=== PATIENT | female | born 2000 ===

== ENCOUNTER 2023-06-14 18:06 | Inpatient (IN) | payer OTHER ==
[~2023-06-14] VITALS: Ht 157.5 cm; Wt 87.2 kg
[2023-06-14 18:12] VITALS: BP 122/72
[2023-06-14 18:53] LABS: BASOPHILS ABSOLUTE AUTO 0.05 K/mm3 (0.00-0.23); BASOPHILS PERCENT AUTO 0 % (0-2); EOSINOPHILS ABSOLUTE AUTO 0.19 K/mm3 (0.00-0.68); EOSINOPHILS PERCENT AUTO 1 % (0-6); Hematocrit 38.5 % (33.0-51.0); Hemoglobin 13.2 g/dL (11.5-16.0); IMMATURE GRAN ABSOLUTE AUTO 0.07 K/mm3 (0.00-0.10); IMMATURE GRAN PERCENT AUTO 1 % (0-1); LYMPHOCYTES ABSOLUTE AUTO 2.48 K/mm3 (0.84-5.20); LYMPHOCYTES PERCENT AUTO 17 % (21-46); MONOCYTES ABSOLUTE AUTO 0.79 K/mm3 (0.16-1.47); MONOCYTES PERCENT AUTO 5 % (4-13); Mean Corpuscular HGB 28.8 pg (26.0-34.0); Mean Corpuscular HGB Conc 34.3 g/dL (31.5-36.5); Mean Corpuscular Volume 84 fL (80-100); Mean Platelet Volume 9.5 fL (9.1-12.4); NEUTROPHILS ABSOLUTE AUTO 11.25 K/mm3 (1.96-9.15); NEUTROPHILS PERCENT AUTO 76 % (41-73); Platelet Count 361 K/mm3 (150-400); RDW Coefficient Variation 12.9 % (11.7-14.2); RDW Standard Deviation 39.3 fL (35.1-46.3); Red Blood Cell Count 4.59 M/mm3 (3.80-5.20); White Blood Cell Count 14.83 K/mm3 (4.00-11.30)
[2023-06-14 21:13] VITALS: BP 113/71
[2023-06-15] VITALS (12 sets, daily range): BP systolic 115–129; BP diastolic 67–76
[2023-06-15 08:13] LABS: PCO2 Cord - Arterial 56.2 mmHg (40-50); PO2 Cord - Arterial < 16 mmHg (16-20); pH Cord - Arterial 7.32 (7.28-7.35)
--- NOTE | 2023-06-15 08:13 | NUR ---
06/15/23 0813 Batsheva Elena TIME: 0759. CORD BLOOD SENT WITH [email or web address]. CORD SEGMENT SENT WITH [email or web address]
[2023-06-15 08:15] LABS: PCO2 Cord - Venous 46.4 mmHg (40-50); PO2 Cord - Venous 15.7 mmHg (28-32); pH Umbilical Cord - Venous 7.37 (7.26-7.35)
[2023-06-16 00:11] VITALS: BP 118/77
--- NOTE | 2023-06-16 03:45 | NUR ---
8361 Patient had just gotten up to the bathroom. Used call light to call for nurse. Patient sitting on edge of bed crying due to pain, unable to move. Administered ibuprofen and tylenol. Pain continued to be severe with patient rating it a 10/10. Administered IV dilaudid per order. Patient's IV leaked with administration so did not receive all of medication.
--- NOTE | 2023-06-16 05:12 | NUR ---
[address] Sanches to report patient's pain of 02/11. Patient reports pain around incision and in lower back that is not relieved by medications. Telephone order to administer 1 mg PO dilaudid now with vistaril, then resume 2 mg PO dilaudid every 3 hours with vistaril.
[2023-06-16 05:42] VITALS: BP 121/66
[2023-06-16 06:04] LABS: BASOPHILS ABSOLUTE AUTO 0.04 K/mm3 (0.00-0.23); BASOPHILS PERCENT AUTO 0 % (0-2); EOSINOPHILS ABSOLUTE AUTO 0.19 K/mm3 (0.00-0.68); EOSINOPHILS PERCENT AUTO 2 % (0-6); Hematocrit 34.6 % (33.0-51.0); Hemoglobin 11.7 g/dL (11.5-16.0); IMMATURE GRAN ABSOLUTE AUTO 0.06 K/mm3 (0.00-0.10); IMMATURE GRAN PERCENT AUTO 1 % (0-1); LYMPHOCYTES ABSOLUTE AUTO 1.85 K/mm3 (0.84-5.20); LYMPHOCYTES PERCENT AUTO 15 % (21-46); MONOCYTES ABSOLUTE AUTO 0.89 K/mm3 (0.16-1.47); MONOCYTES PERCENT AUTO 7 % (4-13); Mean Corpuscular HGB 28.7 pg (26.0-34.0); Mean Corpuscular HGB Conc 33.8 g/dL (31.5-36.5); Mean Corpuscular Volume 85 fL (80-100); Mean Platelet Volume 9.2 fL (9.1-12.4); NEUTROPHILS ABSOLUTE AUTO 9.04 K/mm3 (1.96-9.15); NEUTROPHILS PERCENT AUTO 75 % (41-73); Platelet Count 271 K/mm3 (150-400); RDW Coefficient Variation 13.2 % (11.7-14.2); RDW Standard Deviation 40.1 fL (35.1-46.3); Red Blood Cell Count 4.07 M/mm3 (3.80-5.20); White Blood Cell Count 12.07 K/mm3 (4.00-11.30)
--- NOTE | 2023-06-16 06:05 | NUR ---
Patient reports pain has improved significantly and is now 4/10.
[2023-06-16 07:29] VITALS: BP 115/71
[2023-06-16 11:42] VITALS: BP 123/72
[2023-06-16] MEDS ORDERED: HYDMOR2 PO (12:37)
[2023-06-16] MEDS ORDERED: DOCU100 PO (12:38)
[2023-06-16] MEDS ORDERED: IBUP800 PO (12:38)
[2023-06-16 16:40] VITALS: BP 106/57
[2023-06-16 19:45] VITALS: BP 127/73
[2023-06-17 00:29] VITALS: BP 127/82
[2023-06-17 03:40] VITALS: BP 129/74
[2023-06-17 07:35] VITALS: BP 132/77
--- NOTE | 2023-06-17 12:16 | NUR ---
PT REFUSES VITALS AT THIS TIME
[2023-06-17 15:13] VITALS: BP 129/83
== END 2023-06-17 15:49 | disposition home or self-care (01) | DRG 787 ==
LOC: BC 18:06
PROVIDERS: ADMIT Obstetrics & Gynecology
PROC: 10D00Z1 Extraction of Products of Conception, Low, Open Approach (ICD-10-PCS; principal; 2023-06-15 07:30)
DX: O32.1XX0 Maternal care for breech presentation, not applicable or unspecified (principal); O99.354 Diseases of the nervous system complicating childbirth; Z37.0 Single live birth; Z3A.37 37 weeks gestation of pregnancy; O36.5930 Maternal care for other known or suspected poor fetal growth, third trimester, not applicable or unspecified; O76 Abnormality in fetal heart rate and rhythm complicating labor and delivery; O99.344 Other mental disorders complicating childbirth; F41.9 Anxiety disorder, unspecified; F32.A Depression, unspecified; G43.909 Migraine, unspecified, not intractable, without status migrainosus; Z62.813 Personal history of forced labor or sexual exploitation in childhood
CPT/HCPCS: 36415; 82803; 85025; 86850; 86900; 86901; A9270; J0690; J1170; J1885; J2371; J2405; J2590; J2765; J3010; J7120; Q0177

== ENCOUNTER 2023-11-11 13:14 | Observation (INO) | payer OTHER ==
[~2023-11-11] VITALS: Ht 157.5 cm; Wt 72.6 kg
[~2023-11-11 13:14] MED LIST: DOCU100 PO; HYDMOR2 PO; IBUP800 PO
[2023-11-11 13:19] VITALS: BP 117/84
[2023-11-11] MEDS ORDERED: ZOLOFT10013 PO (13:54)
[2023-11-11] MEDS ORDERED: Buspirone HCl15 MG PO (13:54)
[2023-11-11 14:57] LABS: BASOPHILS ABSOLUTE AUTO 0.09 K/mm3 (0.00-0.23); BASOPHILS PERCENT AUTO 1 % (0-2); EOSINOPHILS ABSOLUTE AUTO 0.33 K/mm3 (0.00-0.68); EOSINOPHILS PERCENT AUTO 4 % (0-6); Hematocrit 44.5 % (33.0-51.0); Hemoglobin 14.9 g/dL (11.5-16.0); IMMATURE GRAN ABSOLUTE AUTO 0.01 K/mm3 (0.00-0.10); IMMATURE GRAN PERCENT AUTO 0 % (0-1); LYMPHOCYTES ABSOLUTE AUTO 2.14 K/mm3 (0.84-5.20); LYMPHOCYTES PERCENT AUTO 24 % (21-46); MONOCYTES ABSOLUTE AUTO 0.55 K/mm3 (0.16-1.47); MONOCYTES PERCENT AUTO 6 % (4-13); Mean Corpuscular HGB Conc 33.5 g/dL (31.5-36.5); Mean Corpuscular Volume 84 fL (80-100); NEUTROPHILS ABSOLUTE AUTO 5.64 K/mm3 (1.96-9.15); NEUTROPHILS PERCENT AUTO 64 % (41-73); Platelet Count 436 K/mm3 (150-400); RDW Standard Deviation 42.7 fL (35.1-46.3); Red Blood Cell Count 5.32 M/mm3 (3.80-5.20); White Blood Cell Count 8.76 K/mm3 (4.00-11.30)
[2023-11-11 15:02] LABS: Source, Urine Clean Catch
[2023-11-11 15:06] LABS: Appearance, Urine Clear (Clear); Bilirubin, Urine Neg (Neg); Blood, Urine Neg (Neg); Color, Urine Yellow (P-Yellow); Glucose Qualitative, Urine Neg (Neg); Ketones, Urine Neg (Neg); Leukocyte Esterase, Urine Neg (Neg); Nitrite, Urine Neg (Neg); Protein, Urine Neg (Neg); Urobilinogen, Urine NORM (Normal)
[2023-11-11 15:11] LABS: Ethanol (Alcohol), Blood, Med <3 mg/dL; Salicylate <1.7 mg/dL (2.8-20.0)
[2023-11-11 15:24] LABS: U Amphetamine Screen Not Detected; U Barbituate Screen DETECTED; U Benzodiazapine Screen Not Detected; U Buprenorphine Screen Not Detected; U Cannabinoids Screen DETECTED; U Cocaine Screen Not Detected; U Methadone Screen Not Detected; U Methamphetamine Screen Not Detected; U Opiates Screen Not Detected; U Oxycodone Screen Not Detected; U Phencyclidine Screen Not Detected
[2023-11-11 16:08] LABS: Alanine Aminotransfer (ALT/SGP 17 U/L (12-78); Albumin, Blood 3.9 g/dL (3.4-5.0); Alk Phos 81 U/L (50-136); Anion Gap 9 mmol/L (3-11); Aspartate Aminotrans (AST/SGOT 15 U/L (12-37); Bilirubin, Total 0.4 mg/dL (0.1-1.0); Blood Urea Nitrogen 12 mg/dL (8-24); Bun/Creatinine Ratio 12.1 (12.0-20.0); CO2, Blood 25 mmol/L (21-32); Calcium, Blood 9.3 mg/dL (8.5-10.1); Chloride, Blood 111 mmol/L (98-108); Creatinine, Blood 0.99 mg/dL (0.40-1.00); Globulin, Blood 3.9 g/dL (2.2-4.0); Glomerular Filtration Rate 81 (60-); Glucose, Blood 96 mg/dL (70-99); Potassium, Blood 3.9 mmol/L (3.5-5.5); Sodium, Blood 141 mmol/L (136-145); Total Protein, Blood 7.8 g/dL (6.4-8.2)
[2023-11-11 16:11] LABS: Acetaminophen, Random <2.0 ug/mL (10.0-30.0)
[2023-11-11] MEDS ORDERED: Ondansetron 4 MG SoluTab SL ONE (19:25)
[2023-11-11] MEDS ORDERED: OLANZapine 10 MG Tab PO ONE (21:45)
== END 2023-11-12 12:21 | disposition other institution (70) ==
LOC: ER 13:14 → EOR 13:15
PROVIDERS: Emergency Medicine; ADMIT Student in an Organized Health Care Education/Training Program
DX: F33.3 Major depressive disorder, recurrent, severe with psychotic symptoms (principal); F43.10 Post-traumatic stress disorder, unspecified; Z87.891 Personal history of nicotine dependence; Z79.899 Other long term (current) drug therapy; Z88.5 Allergy status to narcotic agent
CPT/HCPCS: 80053; 81003; 81025; 85025; 93005; 93010; 99285-25; A9270; G0378; G0480

== ENCOUNTER 2023-11-11 14:53 | Inpatient (IN) | payer OTHER ==
[~2023-11-11] VITALS: Ht 157.5 cm; Wt 72.9 kg
[~2023-11-11 14:53] MED LIST changes: +Buspirone HCl15 MG PO; +ZOLOFT10013 PO
[2023-11-11] MEDS ORDERED: QUEtiapine Fumarate 25 MG Tab PO PRN (20:35)
[2023-11-11] MEDS ORDERED: Haloperidol 5 MG Tab PO PRN ×3 (20:35→20:40)
[2023-11-11] MEDS ORDERED: LORazepam 2 MG Tab PO PRN ×4 (20:35→20:45)
[2023-11-11] MEDS ORDERED: Melatonin 3 MG Tab PO PRN (20:35)
[2023-11-11] MEDS ORDERED: Zolpidem Tartrate 5 MG Tab PO PRN (20:40)
[2023-11-11] MEDS ORDERED: OLANZapine ODT 5 MG Tab MM PRN (20:40)
[2023-11-11] MEDS ORDERED: OLANZapine ODT 10 MG Tab MM PRN (20:40)
[2023-11-11] MEDS ORDERED: DiphenhydrAMINE HCl 50 MG Cap PO PRN ×3 (20:40→20:45)
[2023-11-11] MEDS ORDERED: Acetaminophen 325 MG TABLET PO PRN (20:45)
[2023-11-11] MEDS ORDERED: OLANZapine 10 MG Vial IM PRN (20:45)
[2023-11-11] MEDS ORDERED: Aluminum Hydroxide 320MG/5ML 473 ML PO PRN (20:50)
[2023-11-12] MEDS ORDERED: Multivitamins 1 Tab PO SCH (09:00)
[2023-11-12] MEDS ORDERED: Folic Acid 1 MG TAB PO SCH (09:00)
[2023-11-12] MEDS ORDERED: Thiamine HCl 100 MG Tab PO SCH (09:00)
[2023-11-12 12:45] VITALS: BP 102/69
--- NOTE | 2023-11-12 18:38 | NUR ---
PT SLEPT THIS AFTERNOON AFTER HER ADMISSION. SHE ATE DINNER AND IS NOW VISITNG WITH HER . SHE HAS BEEN PLEASANT AND COOPERATIVE WITH CARE. SHE CONTINUES TO REPORT AUDITORY HALUCINATIONS OF HER FAMILY TELLING HER THEY WISH SHE WAS AND THAT SHE SHOULD KILL HERSELF. SHE PUMPED HER BREASTS AND SENT MILK HOME WITH HER .
[2023-11-12] MEDS ORDERED: QUEtiapine Fumarate 200 MG Tab PO SCH (21:00)
[2023-11-12 21:17] VITALS: BP 101/67
--- NOTE | 2023-11-13 04:21 | NUR ---
SHIFT SUMMARY PT WAS SLEEPING AT BEGINNING OF SHIFT AND UNTIL SHE TOOK HER MEDS AND A SNACK. SHE THEN WENT BACK TO BED AND HAS BEEN SLEEPING SINCE. A&O X 4. HRR. LS CLEAR T/O. DENIES ANY SI/HI OR A/V HALLUCINATIONS. SWALLOWS PILLS WITH LIQUID WITHOUT DIFFICULTY. CHECKED IN MOUTH TO MAKE SURE MEDS WERE NOT POCKETED. WILL CONTINUE TO MONITOR AND PROVIDE CARE T/O SHIFT AND REPORT ANY CHANGES TO MD.
[2023-11-13] MEDS ORDERED: Sertraline HCl 50 MG Tab PO SCH (09:00)
[2023-11-13 10:10] VITALS: BP 126/69
--- NOTE | 2023-11-13 11:12 | NUR ---
PT A/O X4. DENIES GONZALES,AV,GONZALES,AD . VOICES COME ON AND OFF. PUMPED BREAST FOR MILK. STATES 'FEEL WELL RESTED AND CLARITY IS BETTER'. HRR, BT POSITIVE X 4, AND LUNGS CLEAR . DENIES PAIN
--- NOTE | 2023-11-13 16:15 | NUR ---
PT CAME TO NURSES STATION AT 1520 ASKING TO SPEAK TO THE NURSE. I WALKED HER BACK TO HER ROOM. SHE WAS RUNNING HER HANDS THRU HER HAIR AND HAD GRABBED HER HAIR. SHE CONTINUES TO ACT IMPULSIVE WITH HER FIST CLENCHED AND ARMS TIGHT AND HITS AT THE BED BUT NOT HARD. SHE STATES THAT THE VOICES ARE WITH THE TENDENCY TO HARM HERSELF. SHE STATES SHE BELIEVES AND DON'T BELIEVE THE THOUGHTS THAT RUN THROUGH HER HEAD ABOUT HER AND FAMILY, TELLING HER ABOUT CARING ABOUT HER OR IF THEY ARE LYING. I GAVE HER HALOL 5MG PO (AT 1525)TO HELP WITH THE CONPULSIVENESS AND AGITTION AND PARRNOIA THAT SHE SAID THAT SHE COUND'T GET THROUGH. SAT WITH HER UNTIL 1615 TO LET HER TALK AND TRY TO BECOME UNAGGRESSIVEE TOWARDS HERSELF. SHE TOOK A SHOWER TO HELP HER RELAX. LET HER TALK SOME MORE UNTIL PT VISABLLY CALMER AND SHE WANTED TO WALK THE HALLS. SHE CAME TO THE NURSES STATION TO LET US KNOW THAT SHE WAS DOING BETTER AND WENT BACK TO HER ROOM TO LAY DOWN. WILL CONTINUE TO MONITOR.
--- NOTE | 2023-11-13 16:25 | NUR ---
During pt psychosocial assessment, pt discussed with SW preferred resources. SW provided pt with housing resources (i.e. all [facility] and [facility]), anger management, utilities, employment agencies, individual therapy and parenting support.
[2023-11-13 19:53] VITALS: BP 121/75
[2023-11-13] MEDS ORDERED: QUEtiapine Fumarate 300 MG Tab PO SCH (21:00)
--- NOTE | 2023-11-13 23:15 | NUR ---
Patient extremely somnolent at HS. Frequent checks reveal she is still sleeping at 2300. HS Seroquel held at this time. Will re evaluate when patient wakes up depending on the time.
--- NOTE | 2023-11-14 01:09 | NUR ---
Patient awoke just before 0100 and was given her HS Seroquel. No AH or SI at this time
--- NOTE | 2023-11-14 04:01 | NUR ---
[facility] given at 0100 as patient slept through HS until then. No complaints of pain or signs of paranoia. No AH or SI or HI per patient.
--- NOTE | 2023-11-14 08:57 | NUR ---
PT AWAKE EARLY, STATES SHE SLEPT VERY WELL. PT DENIES ANY SI/HI ALSO DENIES ANY AH/VH/TH, STATES LAST AH YESTERDAY EARLY, PT REPORTS SHE FELT "EXTREME PARANOIA," THOUGH SHE ALSO FEELS MUCH BETTER IN THIS REGARD, PT SIGHS WHEN DISCUSSING, IF IT IS A WEIGHT/BURDEN SHE HAS CARRIED AND IS FEELING BETTER, ALONG WITH STATING THESE THINGS. LAST BM TWO DAYS AGO, DISCUSSED INCREASED, FLUIDS, MOVEMENT AND FIBER WITH PT, SHE STATES UNDERSTANDING, DENIES ANY PAIN.
[2023-11-14 09:23] VITALS: BP 118/81
[2023-11-14] MEDS ORDERED: Polyethylene Glycol 3350 17 gm PO PRN (11:55)
--- NOTE | 2023-11-14 15:58 | NUR ---
PT HAS ENGAGED IN GROUPS WELL PLAYING A GAME OF PICTIONARY WITH OTHER PATIENTS AND STAFF, Q15 MIN OR MORE FREQUENT ROUNDING T/O DAY UNLESS SHE IS PUMPING AND IS 1:1 OBSERVATION WHILE IN TREATMENT ROOM AND WITH EQUIPMENT (SHE IS CALLING SO TO LENS AND FRAMES PRESCRIPTION CLERK BREASTMILK EACH TIME). SHE IS EATING WELL AND DRINKING FLUIDS, CONVERSING WITH STAFF AND PATIENTS, SHE IS COOPERATIVE WITH CARE.
[2023-11-14 20:37] VITALS: BP 126/82
[2023-11-14] MEDS ORDERED: QUEtiapine Fumarate 200 MG Tab PO SCH (21:00)
--- NOTE | 2023-11-15 05:29 | NUR ---
SHIFT SUMMARY PT HAD A SNACK AND WATCHED TV AT BEGINNING OF SHIFT. PUMPED BREAST MILK WITH STAFF SUPERVISION. SHE HAS BEEN IN HER ROOM SLEEPING SINCE. HRR, LS CLEAR T/O, BOWEL TONES POSITIVE X 4 QUADRANTS. RESP EVEN AND UNLABORED WHILE IN BED. WILL CONTINUE TO MONITOR AND PROVIDE CARE T/O SHIFT.
[2023-11-15 10:04] VITALS: BP 133/87
--- NOTE | 2023-11-15 16:22 | NUR ---
PT WEIGHED AND ACTUAL WEIGHT 167.6 TODAY
--- NOTE | 2023-11-15 16:34 | NUR ---
PT CO HEARTBURN, PRN ALUMINUM HYDROXIDE PER ORDERS AND REQUEST. PT PLAYING PICTIONARY WITH STAFF AND PATIENTS AT THIS TIME, ENGAGED AND COMMUNICATIVE, MAKING NEEDS KNOWN.
--- NOTE | 2023-11-15 20:52 | NUR ---
PHYSICAL ASSESSMENT: PATIENT IS A AND O X4, ABLE TO ADVOCATE FOR SELF, ABLE TO MAKE NEEDS KNOWN IN A LINEAR MANNER. LUNG SOUNDS ARE CLEAR THROUGHOUT, HRR, BOWEL TONES X 4, NO C/O CONSTIPATION, HAD MIRALAX X2. NO C/O PAIN OR DISCOMFORT. STATES IS SLEEPING WELL. TOOK EVENING MEDICATIONS WITH NO ISSUES.
[2023-11-15 20:55] VITALS: BP 126/102
[2023-11-16 08:23] VITALS: BP 124/83
--- NOTE | 2023-11-16 11:25 | NUR ---
On 11/16/23 SW received a return call from Eric BUTLER from [phone] to [phone] regarding scheduling of follow up services for pt. Eric advised that a mental health assessment can be done at 10:00am on 11/20/2023 with Fabricio for pt. SW met with pt to review if scheduled time would be appropriate to her schedule. Pt confirmed that she would be able to attend scheduled appointment.
[2023-11-16] MEDS ORDERED: QUET100 PO (11:48)
--- NOTE | 2023-11-16 12:45 | NUR ---
DISCHARGE SUMMARY PT [email or web address]. PLEASANT AND COOPERATIVE WITH CARE. PT IS DISCHARGING HOME TODAY TO HER PARTNER AND INFANT DAUGHTER. PT REPORTS "GOOD MOOD" THIS SHIFT AND LOOKING FORWARD TO DC. PT PARTICIPATED IN GROUPS THIS AM AND TOOK MEDICATIONS PRESCRIBED. PT DENIED SI/HI/AH/VH THIS SHIFT. PT WAS PROVIDED DC INSTRUCTIONS INCLUDING FOLLOW UP APPT INFO, DC MED LIST AND PT EDUCATION REGARDING DIAGNOSIS AND NEW RX. PT VERBALIZED UNDERSTANDING AND DENIED FURTHER QUESTIONS. PT BELONGINGS WERE RETURNED AND THEN PT WAS SAFELY ESCORTED OUT OF UNIT WITH MHA TO MEET HER RIDE.
== END 2023-11-16 13:00 | disposition home or self-care (01) | DRG 885 ==
LOC: BHU 14:53
PROVIDERS: ADMIT Student in an Organized Health Care Education/Training Program
DX: F31.64 Bipolar disorder, current episode mixed, severe, with psychotic features (principal); Z88.5 Allergy status to narcotic agent; Z56.0 Unemployment, unspecified; Z91.51 Personal history of suicidal behavior
CPT/HCPCS: A9270

== ENCOUNTER → 2023-12-15 | Outpatient (CLI) | payer OTHER ==
[~2023-12-15] MED LIST changes: +QUET100 PO
== END ==
LOC: LAB 16:13 → LAB SHORT 16:13
DX: R11.2 Nausea with vomiting, unspecified (principal)
CPT/HCPCS: 84702